=== PATIENT | male | born 1950 | race Caucasian/White ===

== ENCOUNTER 2018-04-23 16:37 | Emergency (ER) | payer BC ==
[2018-04-23 17:09] VITALS: BP 164/76
--- NOTE | 2018-04-23 17:26 | UC ---
Knee Pain HPI - HPI Summary HPI Summary: Pt c/o left knee pain that began "several days ago". Pt denies injury or previous trauma or surgery to left knee. Pt states that knee pain worsens with prolonged standing . Pt reports that over the last 2-3 days his left knee feels as though is is going to "give out on him" that he feels that the left knee "wants to bend backwards". - History of Current Complaint Chief Complaint: UCLowerExtremity Stated Complaint: LEFT KNEE COMPLAINT Time Seen by Provider: 04/23/18 17:03 Hx Obtained From: Patient Onset/Duration: Gradual Onset, Lasting Weeks, Still Present Severity Initially: Mild Severity Currently: Mild Pain Intensity: 4 Character: Dull, Aching, Stiffness Aggravating Factor(s): Movement, Weight Bearing, Prolonged Standing, Stairs Alleviating Factor(s): Rest, Position Associated Signs And Symptoms: Positive: Negative Able to Bear Weight: Yes - Risk Factors Septic Arthritis Risk Factor: Negative Gout Risk Factor: Age ^ 40, Male - Allergies/Home Medications Allergies/Adverse Reactions: Allergies Allergy/AdvReac Type Severity Reaction Status Date / Time No Known Allergies Allergy Verified 04/23/18 17:09 Home Medications: Home Medications Aspirin [Aspir-Low] 81 mg PO BEDTIME 04/23/18 [History Confirmed 04/23/18] Ibuprofen TAB* [Advil TAB*] 200 mg PO BEDTIME PRN 04/23/18 [History Confirmed ] Polyethylene Glycol 3350* [Miralax*] 17 gm PO EVERY OTHER DAY 04/23/18 [History Confirmed 04/23/18] PMH/Surg Hx/FS Hx/Imm Hx Previously Healthy: Yes - Surgical History Surgical History: Yes Surgery Procedure, Year, and Place: cataract R eye - Family History Known Family History: Positive: Cardiac Disease - Social History Occupation: Employed Full-time Lives: With Family Alcohol Use: Occasionally Substance Use Type: None Smoking Status (MU): Never Smoked Tobacco Have You Smoked in the Last Year: No Review of Systems All Other Systems Reviewed And Are Negative: Yes Constitutional: Positive: Negative Skin: Positive: Negative Eyes: Positive: Negative ENT: Positive: Negative Respiratory: Positive: Negative Cardiovascular: Positive: Negative Gastrointestinal: Positive: Negative Genitourinary: Positive: Negative Motor: Positive: Weakness - left knee Neurovascular: Positive: Negative Musculoskeletal: Positive: Arthralgia, Myalgia Neurological: Positive: Negative Psychological: Positive: Negative Is Patient Immunocompromised?: No Physical Exam Triage Information Reviewed: Yes Appearance: Well-Appearing Vital Signs: Initial Vital Signs Temp 97.8 F 04/23/18 17:00 Pulse 62 04/23/18 17:00 Resp 16 04/23/18 17:00 BP 164/76 04/23/18 17:00 Pulse Ox 99 04/23/18 17:00 Vital Signs Reviewed: Yes Eye Exam: Normal ENT Exam: Normal Dental Exam: Normal Neck exam: Normal Respiratory Exam: Normal Respiratory: Positive: No respiratory distress Musculoskeletal Exam: Normal Musculoskeletal: Positive: Strength Intact, ROM Intact, Other: - negative drawer test, negative valgus and varus Neurological Exam: Normal Psychological Exam: Normal Skin Exam: Normal Knee Pain Course/Dx - Differential Dx/Diagnosis Differential Diagnosis/HQI/PQRI: DVT, Internal Derangement Of Knee, Sprain, Strain, Tendonitis Provider Diagnosis: Left knee pain Discharge - Sign-Out/Discharge Documenting (check all that apply): Patient Departure All imaging exams completed and their final reports reviewed: No Studies - Discharge Plan Condition: Stable Disposition: HOME Patient Education Materials: Knee Pain (ED), Arthralgia (ED) Referrals: Rg Fernandez MD [Medical Doctor] - As Soon As Possible Kassy Arthur MD [Primary Care Provider] - If Needed Bishnu Hinton MD [Medical Doctor] - As Soon As Possible - Billing Disposition and Condition Condition: STABLE Disposition: Home
== END 2018-04-23 17:32 | disposition home or self-care (01) ==
LOC: UCCORT 16:37
DX: M25.562 Pain in left knee (principal)
CPT/HCPCS: 99211; G0463

== ENCOUNTER 2018-08-05 16:57 | Emergency (ER) | payer BC ==
[2018-08-05 17:16] VITALS: BP 139/59
--- NOTE | 2018-08-05 18:13 | UC ---
Respiratory Complaint HPI - HPI Summary HPI Summary: Pt presents with c/o cough, nasal congestion, X 3 days. - History of Current Complaint Chief Complaint: UCGeneralIllness Stated Complaint: COUGH,CONGESTION Time Seen by Provider: 08/05/18 17:56 Hx Obtained From: Patient Onset/Duration: Sudden Onset, Lasting Days, Still Present Timing: Constant Severity Initially: Mild Severity Currently: Mild Pain Intensity: 0 Character: Cough: Productive Aggravating Factors: Deep Breaths, Recumbent Position Alleviating Factors: Spontaneous Resolution Associated Signs And Symptoms: Positive: Wheezing, URI, Nasal Congestion - Risk Factors Pulmonary Embolism Risk Factors: Negative Cardiac Risk Factors: Negative Tuberculosis Risk Factors: Negative - Allergies/Home Medications Allergies/Adverse Reactions: Allergies Allergy/AdvReac Type Severity Reaction Status Date / Time No Known Allergies Allergy Verified 08/05/18 17:10 PMH/Surg Hx/FS Hx/Imm Hx Previously Healthy: Yes Cardiovascular History: Cardiac Disease - Surgical History Surgical History: Yes Surgery Procedure, Year, and Place: cataract R eye. gallbladder - Family History Known Family History: Positive: Cardiac Disease - Social History Occupation: Retired Lives: With Family Alcohol Use: Occasionally Substance Use Type: None Smoking Status (MU): Never Smoked Tobacco Have You Smoked in the Last Year: No Review of Systems All Other Systems Reviewed And Are Negative: Yes Constitutional: Positive: Negative Skin: Positive: Negative Eyes: Positive: Negative ENT: Positive: Sinus Congestion Respiratory: Positive: Cough, Other - wheezing Cardiovascular: Positive: Negative Gastrointestinal: Positive: Negative Genitourinary: Positive: Negative Motor: Positive: Negative Neurovascular: Positive: Negative Musculoskeletal: Positive: Negative Neurological: Positive: Negative Psychological: Positive: Negative Is Patient Immunocompromised?: No Physical Exam Triage Information Reviewed: Yes Appearance: Well-Appearing Vital Signs: Initial Vital Signs Temp 98.5 F 08/05/18 17:11 Pulse 74 08/05/18 17:11 Resp 17 08/05/18 17:11 BP 139/59 08/05/18 17:11 Pulse Ox 99 08/05/18 17:11 Vital Signs Reviewed: Yes ENT: Positive: Nasal congestion Dental Exam: Normal Neck exam: Normal Respiratory Exam: Normal Cardiovascular Exam: Normal Musculoskeletal Exam: Normal Neurological Exam: Normal Psychological Exam: Normal Skin Exam: Normal Respiratory Course/Dx - Differential Dx/Diagnosis Differential Diagnosis/HQI/PQRI: Bronchitis, Influenza Provider Diagnosis: Viral syndrome Discharge - Sign-Out/Discharge Documenting (check all that apply): Patient Departure All imaging exams completed and their final reports reviewed: No Studies - Discharge Plan Condition: Stable Disposition: HOME Prescriptions: Albuterol HFA INHALER* [Ventolin HFA Inhaler*] 1 - 2 puff INH Q6H PRN #1 mdi PRN Reason: Sob/Wheezing Benzonatate CAP* [Tessalon 100 MG CAP*] 200 mg PO Q8H PRN #30 cap PRN Reason: Cough Cetirizine* [ZyrTEC 10 MG TAB*] 10 mg PO DAILY #10 tab predniSONE TAB* [Deltasone 10 MG TAB*] 30 mg PO DAILY #12 tab Patient Education Materials: Viral Syndrome (ED), Wheezing (ED) Referrals: Kassy Arthur MD [Primary Care Provider] - If Needed - Billing Disposition and Condition Condition: STABLE Disposition: Home - Attestation Statements Provider Attestation: Per institutional requirements, I have reviewed the chart, however, I was not consulted specifically or made aware of this patient by the midlevel provider. I did not personally evaluate, interact with , or disposition this patient.
== END 2018-08-05 18:21 | disposition home or self-care (01) ==
LOC: UCCORT 16:57
DX: B34.9 Viral infection, unspecified (principal); R05 Cough; R09.81 Nasal congestion; R06.2 Wheezing
CPT/HCPCS: 99212; G0463

== ENCOUNTER 2019-04-13 15:29 | Emergency (ER) | payer BC, OTHER ==
[2019-04-13 16:04] VITALS: BP 121/51
--- OUTSIDE RECORDS SUMMARY | 2019-04-13 16:48 | XMS REPORT | Continuity of Care Document ---
:1950 External Reference #:[id number] Author Name Kassy Arthur MD (transmitted by agent of provider Renetta Woo) Address [address] [place] [address] Problems Active Problems Provider Date Mitral valve disorder Kassy Arthur MD Onset: 02/14/2011 Benign prostatic hypertrophy with outflow obstruction Kassy Atrhur MD Onset: Social History Type Date Description Comments Sex Unknown Tobacco Use Start: Unknown Never Smoked Cigarettes ETOH Use Occasionally consumes alcohol wine or beer Tobacco Use Start: Unknown Patient has never smoked Smoking Status Reviewed: 07/14/17 Patient has never smoked Allergies, Adverse Reactions, Alerts Description No Known Drug Allergies Medications Active Medications SIG Qnty Indications Ordering Provider Date Miralax 17 gms in 8 oz 90units Kassy Arthur MD 09/21/2014 3350NF Powder fluid every day Aspir-Low 1 po qd 90tabs Kassy Arthur MD 02/14/2011 81mg Tablets Immunizations CPT Code Status Date Vaccine Lot # [id number] Given 06/04/2016 Pneumococcal Conjugate Vaccine 13 Valent For [id number] Intramuscular Use Q2037 Given 03/08/2016 Influenza Vaccine (Fluvirin) 3 Years Of Age Or Older Q2037 Given 04/04/2015 Influenza Vaccine (Fluvirin) 3 Years Of Age Or [id number] Older 10469 Given 03/07/2014 Zostavax Q2037 Given 02/21/2014 Influenza Vaccine (Fluvirin) 3 Years Of Age Or Older Q2037 Given 02/21/2014 Influenza Vaccine (Fluvirin) 3 Years Of Age Or [id number] Older Q2037 Given 07/07/2013 Influenza Vaccine (Fluvirin) 3 Years Of Age Or [id number] Older Q2037 Given 07/07/2013 Influenza Vaccine (Fluvirin) 3 Years Of Age Or Older 79499 Given 07/07/2013 Tetanus,Diphtheria,Adut/Adol Pertussis [id number] Q2037 Given 03/23/2012 Influenza Vaccine (Fluvirin) 3 Years Of Age Or [id number] Older 22419 Given 03/26/2010 Influenza Vaccine 36598 Given 03/12/2002 DT Immunization DIP/Tet (History Only) Q2037 Given 02/21/1996 Influenza Vaccine (Fluvirin) 3 Years Of Age Or [id number] Older Vital Signs Date Vital Result Comment 02/22/2019 1:55pm BP Systolic 140 mmHg BP Diastolic 72 mmHg Heart Rate 58 /min Respiratory Rate 16 /min Height 70 inches 5'10" Weight 222.00 lb BMI (Body Mass Index) 31.9 kg/m2 O2 % BldC Oximetry 99 % 06/17/2018 10:24am BP Systolic 138 mmHg BP Diastolic 84 mmHg Height 67 inches 5'7" Weight 233.00 lb BMI (Body Mass Index) 36.5 kg/m2 Results Test Date Facility Test Result H/L Range Note .TSH+Free 02/09/2019 [facility] Thyroid Stim 1.81 uIU /mL Normal 0.30-4.[address] [place] ([place] [address] [facility]) [phone] Free T4 <pending> CBS W/Automated 02/09/2019 [facility] White 6.2 K/uL Normal 3.4-10.[address] [place] [address] Count [phone] Red Blood Count 4.59 M/uL Normal 4.20-5.80 Hemoglobin 14.5 gm/dL Normal 12.8-17.0 Hematocrit 42.6 % Normal 38.0-48.0 Mean Cell Volume 92.8 fl Normal 80.0-96.0 Mean Corpuscular HGB 31.6 pg Normal 27.0-33.0 Mean Corpuscular HGB Conc 34.0 g/dL Normal 31.7-36.0 Platelet Count 168 K/uL Normal 155-360 Red Cell Distri Width SD 44.0 fl Normal 36-51 Red Cell Distri Width %CV 13.0 % Normal 11.6-15.8 Mean Platelet Volume 10.3 fl Normal 6.6-10.6 Neut% 58.3 % Normal 33.0-73.0 Lymph % 24.9 % Normal 20.0-42.0 Rhea % 11.6 % High 0.0-10.0 Eo% 3.9 % Normal 0.0-6.6 Bas% 1.0 % Normal 0.0-1.1 Immature Grans 0.3 % Normal 0.0-5.0 NRBC % 0.0 /100WBC < 10/ 100 WBC Neut# 3.63 K/uL Normal 1.8-7.0 Lymph # 1.55 K/uL Normal 1.0-4.0 Rhea # 0.72 K/uL Normal 0.0-0.8 Eos # 0.24 K/uL Normal 0.0-0.5 Baso # 0.06 K/uL Normal 0.0-0.1 Immature Grans Absolute 0.02 K/uL NRBC # 0.00 K/uL Comprehensive 02/09/2019 [facility] Glucose 123 mg/ dL High 74-106 Metabolic Panel [address] [place], [place] [id number] [phone] BUN 20 mg/dL High 7-18 Creatinine 1.1 mg/dL Normal 0.6-1.3 Glom Filtration Rate, Estimate >60 mL/min >60 If >60 mL/min >60 2 BUN/Creat 18.1 ratio Sodium 139 mmol/L Normal 136-145 Potassium 4.3 mmol/L Normal 3.5-5.1 Chloride 105 mmol/L Normal 98-107 Carbon Dioxide 33 mmol/L High 21-32 Anion Gap 1 mEq/L Low 8-16 Calcium 8.8 mg/dL Normal 8.5-10.1 Total Protein 7.3 g/dL Normal 6.4-8.2 Albumin 4.0 g/dL Normal 3.4-5.0 Globulin 3.3 g/dL Normal 1.9-4.3 Alb/Glob 1.2 ratio Bilirubin,Total 0.7 mg/dL Normal 0.2-1.0 Sgot/Ast 11 U/L Low 15-37 3 SGPT/Alt 21 U/L Normal 12-78 Alkaline Phosphatase 43 U/L Low 45-117 LDL Cholesterol 02/09/2019 [facility] Cholesterol 126 mg/dL <200 [address] [place] [address] [phone] Triglycerides 83 mg/dL <150 5 HDL Cholesterol 47 mg/dL >40 6 LDL-Cholesterol 62 mg/dL < 100 7 Laboratory test 02/09/2019 [facility] Prostate 1.38 ng/mL < 4.0 [address] [place] [address] Antigen [phone] 1 I11.9 N28.0 Z00.00 N40.1 2 Note: Persistent reduction for 3 months or more in an eGFR <60 mL/min/1.73 m2 defines CKD. Patients with eGFR values >/=60 mL/min/1.73 m2 may also have CKD if evidence of persistent proteinuria is present. The original MDRD equation for estimated GFR is not valid for patients less than 18 years of age. Additional information may be found at www.kdoqi.org. 3 Values below the stated reference ranges of AST and ALT can be seen in normal populations. Clinical correlation is suggested. 4 Reference Guidelines*: Desirable: ........... < 200 mg/dL Borderline High: ..... 200-239 mg/dL High: ................ >= 240 mg/dL * The National Cholesterol Education Program (NCEP) 5 Reference Guidelines*: Normal: ............. < 150 mg/dL Borderline High: .... 150-199 mg/dL High: ............... 200-499 mg/dL Very High: .......... > 500 mg/dL * Source: National Cholesterol Education Program (NCEP) 6 Reference Guidelines*: Low HDL: ..... < 40 mg/dL Normal: ..... 40-60 mg/dL Desirable: ... > 60 mg/dL *The National Cholesterol Education Program(NCEP) 7 Reference Guidelines*: Optimal:........... <100 mg/dL Near Optimal....... 100-129 mg/dL Borderline High.... 130-159 mg/dL High............... 160-189 mg/dL Very High.......... >=190 mg/dL * Source: National Cholesterol Education Program (NCEP) 8 THIS ASSAY IS NOT INTENDED A CANCER SCREENING TEST The concentration of PSA in a given specimen, determined with assays from different manufacturers, can vary due to differences in assay methods and reagent specificity. Values obtained from different assay methods cannot be used interchangeably. Method: [employer] [place] Chemiluminescent immunoassay. Procedures Date Code Description Status 02/09/2019 81673 EKG-Tracing & Report Completed 05/19/2012 34325207 Colonoscopy Completed Medical Devices Description No Information Available Encounters Description No Information Available Assessments Date Code Description Provider 02/09/2019 E78.2 Mixed hyperlipidemia Kassy Arthur MD Plan of Treatment No Information Available Functional Status Description No Information Available Mental Status Description No Information Available Referrals Description No Information Available
--- OUTSIDE RECORDS SUMMARY | 2019-04-13 16:48 | XMS REPORT | Continuity of Care Document ---
:1950 External Reference #:[id number] Author Name Kassy Arthur MD (transmitted by agent of provider Tracy Ramirez) Address [address] [place] [address] Problems Active Problems Provider Date Mitral valve disorder Kassy Arthur MD Onset: 02/14/2011 Benign prostatic hypertrophy with outflow obstruction Kassy Artuhr MD Onset: Social History Type Date Description Comments Sex Unknown Tobacco Use Start: Unknown Never Smoked Cigarettes ETOH Use Occasionally consumes alcohol wine or beer Tobacco Use Start: Unknown Patient has never smoked Smoking Status Reviewed: 07/14/17 Patient has never smoked Allergies, Adverse Reactions, Alerts Description No Known Drug Allergies Medications Active Medications SIG Qnty Indications Ordering Provider Date Flomax 1 by mouth 90caps Kassy Arthur MD 02/22/2019 0.4mg Capsules every day Miralax 17 gms in 8 oz 90units Kassy Arthur MD 09/21/2014 3350NF Powder fluid every day Aspir-Low 1 po qd 90tabs Kassy Arthur MD 02/14/[address] Immunizations CPT Code Status Date Vaccine Lot # [id number] Given 06/04/2016 Pneumococcal Conjugate Vaccine 13 Valent For [id number] Intramuscular Use Q2037 Given 03/08/2016 Influenza Vaccine (Fluvirin) 3 Years Of Age Or Older Q2037 Given 04/04/2015 Influenza Vaccine (Fluvirin) 3 Years Of Age Or [id number] Older 71730 Given 03/07/2014 Zostavax Q2037 Given 02/21/2014 Influenza Vaccine (Fluvirin) 3 Years Of Age Or Older Q2037 Given 02/21/2014 Influenza Vaccine (Fluvirin) 3 Years Of Age Or [id number] Older Q2037 Given 07/07/2013 Influenza Vaccine (Fluvirin) 3 Years Of Age Or [id number] Older Q2037 Given 07/07/2013 Influenza Vaccine (Fluvirin) 3 Years Of Age Or Older 83240 Given 07/07/2013 Tetanus,Diphtheria,Adut/Adol Pertussis [id number] Q2037 Given 03/23/2012 Influenza Vaccine (Fluvirin) 3 Years Of Age Or [id number] Older 34340 Given 03/26/2010 Influenza Vaccine 52407 Given 03/12/2002 DT Immunization DIP/Tet (History Only) Q2037 Given 02/21/1996 Influenza Vaccine (Fluvirin) 3 Years Of Age Or [id number] Older Vital Signs Date Vital Result Comment 02/22/2019 1:55pm BP Systolic 140 mmHg BP Diastolic 72 mmHg BP Systolic Recheck 120 mmHg BP Diastolic Recheck 70 mmHg Heart Rate 58 /min Respiratory Rate 16 /min Height 70 inches 5'10" Weight 222.00 lb BMI (Body Mass Index) 31.9 kg/m2 O2 % BldC Oximetry 99 % 06/17/2018 10:24am BP Systolic 138 mmHg BP Diastolic 84 mmHg Height 67 inches 5'7" Weight 233.00 lb BMI (Body Mass Index) 36.5 kg/m2 Results Test Date Facility Test Result H/L Range Note .TSH+Free 02/09/2019 [facility] Thyroid Stim 1.81 uIU /mL Normal 0.30-4.[address] Hormone ([place] [address] [facility]) [phone] Free T4 <pending> CBS W/Automated 02/09/2019 [facility] White 6.2 K/uL Normal 3.4-10.[address] [place] [address] Count [phone] Red Blood Count 4.59 M/uL Normal 4.20-5.80 [...] 33.0-73.0 Lymph % 24.9 % Normal 20.0-42.0 [place] % 11.6 % High 0.0-10.0 Eo% 3.9 % Normal 0.0-6.6 Bas% 1.0 % Normal 0.0-1.1 Immature Grans 0.3 % Normal 0.0-5.0 NRBC % 0.0 /100WBC < 10/ 100 WBC Neut# 3.63 K/uL Normal 1.8-7.0 Lymph # 1.55 K/uL Normal 1.0-4.0 Trinity # 0.72 K/uL Normal 0.0-0.8 Eos # 0.24 K/uL Normal 0.0-0.5 Baso # 0.06 K/uL Normal 0.0-0.1 Immature Grans Absolute 0.02 K/uL NRBC # 0.00 K/uL Comprehensive 02/09/2019 [facility] Glucose 123 mg/ dL High 74-106 Metabolic Panel [address] [place], [place] [id number] [phone] BUN 20 mg/dL High 7-18 Creatinine 1.1 [...] 43 U/L Low 45-117 LDL Cholesterol 02/09/2019 [facility] Cholesterol 126 mg/dL <200 [address] [place] [address] [phone] Triglycerides 83 mg/dL <150 5 HDL Cholesterol 47 mg/dL >40 6 LDL-Cholesterol 62 mg/dL < 100 7 Laboratory test 02/09/2019 [facility] Prostate 1.38 ng/mL < 4.0 [address] [place] [address] Antigen [phone] 1 I11.9 N28.0 Z00.00 N40.1 2 Note: [...] assay methods cannot be used interchangeably. Method: [employer] [place] Chemiluminescent immunoassay. Procedures Date Code Description Status 02/09/2019 84022 EKG-Tracing & Report Completed 05/19/2012 [id number] Colonoscopy Completed Medical Devices Description No Information Available Encounters Description No Information Available Assessments Date Code Description Provider 02/22/2019 M25.569 Pain in unspecified knee Kassy Arthur MD 02/22/2019 N40.1 Benign prostatic hyperplasia with lower urinary Kassy Arthur MD tract symptoms 02/22/2019 Z00.00 Encounter for general adult medical examination Kassy Arthur MD without abnormal findings 02/09/2019 E78.2 Mixed hyperlipidemia Kassy Arthur MD Plan of Treatment Future Appointment(s):08/13/2019 8:00 am - Nurse at Main [id number]/23/2019 11: 15 am - Kassy Arthur MD at [facility] [id number]/22/2019 - Kassy Arthur MDM25.569 Pain in unspecified kneeN40.1 Benign prostatic hyperplasia with lower urinary tract bohorxatA90.00 Encounter for general adult medical examination without abnormal findingsAllNew Medication:Flomax 0.4 mg - 1 by mouth every dayComments:UA DONEFLU VAC TO BE OBTAINED AT PHARMACYRECTAL/STOOL GUAIC DONEREFER UROLOGY, SYMPTOMS OF DECREASEDSTREAM, FLOMAX RESTARTEDRTO 6 MONTHSHAIC,BMP BEFORE VISIT FBS 123 Functional Status Description No Information Available Mental Status Description No Information Available Referrals Description No Information Available
--- OUTSIDE RECORDS SUMMARY | 2019-04-13 16:48 | XMS REPORT | Summary of Care ---
:1950 Author Organization [facility] Address [address] [place] [address] Care Team Providers Name Role Phone Kassy Arthur MD Primary Care Provider Reason for Referral Refer to Department Only (Routine) Status Reason Specialty Diagnoses / Referred By Referred To Procedures Contact Contact Pending Review Physical Diagnoses Primary osteoarthritis of left knee Pro Gonzáles MD [address] [place] [address] [place] [address] Reason for Visit Reason Comments Follow Up Left knee pain. Encounter Details Date Type Department Care Team Description 04/01/2019 Office Visit [facility] Pro Gonzáles, Primary osteoarthritis [address] [place] of left knee ([place] [address] [address] [facility] Dx) [phone] [place] [address] [phone] Allergies No Known Allergiesdocumented as of this encounter (statuses as of 04/03/2019) Medications Medication Sig Dispensed Refills Start Date End Date Status Polyethylene Glycol 3350 Take by mouth. 0 Active (MIRALAX PO) Aspirin 81 MG Oral Tab Take by mouth. 0 Active EC documented as of this encounter (statuses as of 04/03/2019) Active Problems No known active problemsdocumented as of this encounter (statuses as of 2018) Social History Tobacco Use Types Packs/Day Years Used Date Never Smoker Smokeless Tobacco: Never Used Sex Assigned at Date Recorded Not on file Job Start Date Occupation Industry Not on file Not on file Not on file Travel History Travel Start Travel End No recent travel history available. documented as of this encounter Last Filed Vital Signs Vital Sign Reading Time Taken Comments Blood Pressure 136/77 04/01/2019 1:52 PM EST Pulse 54 04/01/2019 1:52 PM EST Temperature - - Respiratory Rate - - Oxygen Saturation - - Inhaled Oxygen Concentration - - Weight 99.8 kg (220 lb) 04/01/2019 1:52 PM EST Height 180.3 cm (5' 11") 04/01/2019 1:52 PM EST Body Mass Index 30.68 04/01/2019 1:52 PM EST documented in this encounter Progress Notes Pro Gonzáles MD - 04/01/2019 1:45 PM EST Name: Ry Huggins : 1950 Date of Service: 04/01/2019 Chief Complaint Patient presents with Follow Up Left knee pain. History of Present Illness: Ry Huggins is a 68-y.o. male. The above is noted. Patient is in today for follow-up of left knee discomfort. Last seen in the office on 07/02/2018. Patient states that he has gone to physical therapy with significant relief. Physical Examination: BP 136/77 | Pulse 54 | Ht 5' 11" (1.803 m) | Wt 220 lb (99.8 kg) | BMI 30.68 kg/m Well-developed well-nourished male in minimal discomfort at rest. Left knee range of motion: Reveals full extension, flexion is 120 degrees without discomfort no varus or valgus instability. Patient has mild discomfort on palpation of anterior medial anterolateral joint lines. Impression: 1. Primary osteoarthritis of left knee Plan: Follow-up in 6 weeks for further evaluation Patient is improved. All questions were answered. There are no Patient Instructions on file for this visit. Author: Pro Gonzáles MD 04/03/2019 20:01 documented in this encounter Plan of Treatment Date Type Specialty Care Team Description 05/13/2019 Office Visit Orthoped[facility] Pro Gonzáles MD [address] [place] [address] [phone] Name Type Priority Associated Diagnoses Order Schedule REFER TO PHYSICAL Referral Routine Primary osteoarthritis of Ordered: 04/01 THERAPY / REHAB left knee Health Maintenance Due Date Last Done Comments DEPRESSION SCREENING 1962 HIV SCREENING 1965 DIABETES SCREENING 1968 LIPID DISORDER SCREENING 1968 HEPATITIS C SCREENING 1990 Colonoscopy 2000 ZOSTER IMMUNIZATION SERIES (1 of 2) 2000 FALL RISK ASSESSMENT 09/08/2015 PNEUMOCOCCAL 65+YRS (1 of 2 - 09/08/2015 PCV13) INFLUENZA VACCINE (#1) 2019 HPV IMMUNIZATION SERIES Aged Out No longer eligible based on patient's age to complete this topic MENINGOCOCCAL VACCINE IMM Aged Out No longer eligible based on patient's age to complete this topic documented as of this encounter Results Not on filedocumented in this encounter Visit Diagnoses Diagnosis Primary osteoarthritis of left knee - Primary Primary localized osteoarthrosis, lower leg documented in this encounter Insurance Payer Benefit Plan / Subscriber ID Effective Dates Phone Address Type Group [employer] xxxxxxxxxxxx 2016-Present [employer] documented as of this encounter
--- NOTE | 2019-05-06 13:59 | UC ---
Back Pain HPI - HPI Summary HPI Summary: Pt slipped on black ice and fell landing on his buttocks first and then hit the back of his head. No LOC, no Neck pain. He complains of pain to lover back. - History of Current Complaint Chief Complaint: UCHeadInjury Stated Complaint: S/P FALL BACK/HEAD INJ Time Seen by Provider: 04/13/19 16:12 Hx Obtained From: Patient Onset/Duration: Sudden Onset Timing: Intermittent Severity Initially: Mild Severity Currently: Mild Pain Intensity: 4 Pain Scale Used: 0-10 Numeric Character: Dull, Aching Aggravating Factor(s): Movement, Bending Alleviating Factor(s): Rest Associated Signs And Symptoms: Positive: Negative. Negative: Swelling, Bruising , Weakness, Numbness, Tingling, Abdominal Pain, Flank Pain, Bladder Incontinence , Bowel Incontinence - Allergies/Home Medications Allergies/Adverse Reactions: Allergies Allergy/AdvReac Type Severity Reaction Status Date / Time No Known Allergies Allergy Verified 04/13/19 16:04 Home Medications: Home Medications Tamsulosin HCl [Flomax] 0.4 mg PO BEDTIME 04/13/19 [History Confirmed 04/13/19] PMH/Surg Hx/FS Hx/Imm Hx Previously Healthy: Yes - Surgical History Surgical History: Yes Surgery Procedure, Year, and Place: cataract R eye. gallbladder - Family History Known Family History: Positive: Cardiac Disease - Social History Occupation: Retired Alcohol Use: Weekly Substance Use Type: None Smoking Status (MU): Never Smoked Tobacco Have You Smoked in the Last Year: No Review of Systems All Other Systems Reviewed And Are Negative: Yes Musculoskeletal: Positive: Other: - Low back pain which has worsened as the day has progressed. Initially, it was very minor. Denies head or neck Neurological: Negative: Headache, Weakness, Paresthesia, Numbness Is Patient Immunocompromised?: No Physical Exam Triage Information Reviewed: Yes Appearance: Well-Appearing, No Pain Distress, Well-Nourished Vital Signs: Initial Vital Signs Temp 98.8 F 04/13/19 15:59 Pulse 59 04/13/19 15:59 Resp 18 04/13/19 15:59 BP 121/51 04/13/19 15:59 Pulse Ox 98 04/13/19 15:59 Vital Signs Reviewed: Yes Eyes: Positive: Conjunctiva Clear - PERRLA EOMI ENT: Positive: Hearing grossly normal, Pharynx normal, TMs normal, Uvula midline Neck: Positive: Supple, Nontender - C-Spine non-tender, No Lymphadenopathy Respiratory: Positive: Chest non-tender, Lungs clear, Normal breath sounds, No respiratory distress, No accessory muscle use Cardiovascular: Positive: RRR, No Murmur, Pulses Normal, Brisk Capillary Refill Abdomen Description: Positive: Nontender, No Organomegaly, Soft. Negative: CVA Tenderness (R), CVA Tenderness (L), Distended, Guarding, Hepatomegaly, Splenomegaly Bowel Sounds: Positive: Present Musculoskeletal: Positive: Strength Intact, ROM Intact, Other: - Mild pain on palpation LS Spine, no bruising, erythema, defomitiy or swelling. Neurological: Positive: Alert, Muscle Tone Normal - CN II-XII intact. Good arm and leg strength against resistance, good knee reflexes Psychological Exam: Normal Back Pain Course/Dx - Course Course Of Treatment: LS Spine x-ray: negative - Differential Dx/Diagnosis Provider Diagnosis: Low back pain Discharge ED - Sign-Out/Discharge Documenting (check all that apply): Patient Departure All imaging exams completed and their final reports reviewed: Yes - Discharge Plan Condition: Good Disposition: HOME Patient Education Materials: Low Back Strain (ED) Forms: *Work Release Referrals: Kassy Arthur MD [Primary Care Provider] - Additional Instructions: Apply ice intermittently to the sore area. Take Tylenol every 4 hours and Motrin every 8 hours for pain. Avoid movements that cause pain. Follow-up with your primary care provider in 3 or 4 days if no improvement. - Billing Disposition and Condition Condition: GOOD Disposition: Home
== END 2019-04-13 17:36 | disposition home or self-care (01) ==
LOC: UCCORT 15:29
DX: M54.5 Low back pain (principal); M47.817 Spondylosis without myelopathy or radiculopathy, lumbosacral region
CPT/HCPCS: 72110; 99211; G0463